=== PATIENT | female | born 1955 | race Caucasian/White ===

== ENCOUNTER 2017-09-05 23:50 | Emergency (ER) | payer OTHER ==
[~2017-09-05] VITALS: Ht 157.5 cm; Wt 74.8 kg
--- NOTE | 2017-09-06 00:21 | NUR ---
DR. CHAHAL AT BEDSIDE FOR MSE.
--- NOTE | 2017-09-06 01:55 | NUR ---
Patient discharged to home in stable conditon. Written and verbal after care instructions given. Patient verbalizes understanding of instructions. PATIENT LEFT WITH STABLE GAIT.
[2017-09-06 01:56] VITALS: BP 142/73
== END 2017-09-06 01:55 | disposition home or self-care (01) ==
LOC: ER 23:56
DX: S63.633A Sprain of interphalangeal joint of left middle finger, initial encounter (principal); Z90.49 Acquired absence of other specified parts of digestive tract; F17.200 Nicotine dependence, unspecified, uncomplicated; W18.30XA Fall on same level, unspecified, initial encounter; Y93.89 Activity, other specified; Y92.89 Other specified places as the place of occurrence of the external cause; Y99.8 Other external cause status
CPT/HCPCS: 29125; 73140; 99284; A4663

== ENCOUNTER 2022-05-29 17:25 | Emergency (ER) | payer MEDICARE, OTHER ==
[~2022-05-29] VITALS: Ht 157.5 cm; Wt 75.7 kg
[2022-05-29] MEDS ORDERED: VANCOMYCIN IV 1,000 MG in IV DEXTROSE 5% 250 ML IV ONE (18:45)
[2022-05-29] MEDS ORDERED: CEFTRIAXONE 1 G in IV DEXTROSE 5% 50 ML IV ONE (18:45)
[2022-05-29] MEDS ORDERED: CEFTRIAXONE /D5W 50ML IVPB **ER PYXIS IV ONE (18:51)
[2022-05-29] MEDS ORDERED: VANCOMYCIN IV 200 ML ONE (18:51)
[2022-05-29 19:00] LABS: HEMATOCRIT 40.6 % (31.2-41.9); MEAN CORPUSCULAR HEMOGLOBIN 27.9 uug (24.7-32.8); PLATELET COUNT (AUTO) 284 K/uL (179-408)
[2022-05-29 19:06] LABS: CREATININE 0.9 mg/dL (0.6-1.3)
--- NOTE | 2022-05-29 19:30 | NUR ---
ASSUMED CARE AND REPORT RECEIVED FROM OUTGOING RN.
--- NOTE | 2022-05-29 20:00 | NUR ---
IV ANTIBIOTICS FROM PREVIOUS SHIFT ON BEDSIDE TABLE, NO ARM BAND ON PATIENT, OBTAIN FROM REGISTRATION FOR SCANNING OF MEDS/AND IV PUMP FOR VANCO INFUSION.
[2022-05-29] MEDS ORDERED: HYDR-500 PO (21:40)
[2022-05-29] MEDS ORDERED: AMOX-430 PO (21:40)
--- NOTE | 2022-05-29 21:55 | NUR ---
SL LEFT AC DISCONTINUED WITH CATH INTACT.
--- NOTE | 2022-05-29 21:59 | NUR ---
DISCUSSED AND GIVE PATIENT DISCHARGE INSTRUCTIONS/RX AND PATIENT VERBALIZED UNDERSTANDING. LEFT ED AMBULATORY WITHOUT DISTRESS OR DISCOMFORT. RX GIVEN TO THE PATIENT FOR ITCHING/INFECTION.
[2022-05-29 22:32] VITALS: BP 120/63
== END 2022-05-29 22:34 | disposition home or self-care (01) ==
LOC: ER 17:28
DX: L03.011 Cellulitis of right finger (principal); S60.462A Insect bite (nonvenomous) of right middle finger, initial encounter; W57.XXXA Bitten or stung by nonvenomous insect and other nonvenomous arthropods, initial encounter; Y92.89 Other specified places as the place of occurrence of the external cause; F17.200 Nicotine dependence, unspecified, uncomplicated
CPT/HCPCS: 99284; 96365; 80048; 85025; 85651; 86140; 36415; 96368; J0696; J3370; A4663

== ENCOUNTER 2023-07-30 19:02 | Emergency (ER) | payer MEDICARE, OTHER ==
[~2023-07-30] VITALS: Ht 157.5 cm; Wt 71.7 kg
[~2023-07-30 19:02] MED LIST: AMOX-430 PO; HYDR-500 PO
[2023-07-30 19:14] VITALS: O2SAT 95
[2023-07-30] MEDS ORDERED: HYDR-501 PO (19:44)
== END 2023-07-30 19:52 | disposition home or self-care (01) ==
LOC: ER 19:06
DX: S50.862A Insect bite (nonvenomous) of left forearm, initial encounter (principal); S50.861A Insect bite (nonvenomous) of right forearm, initial encounter; S00.86XA Insect bite (nonvenomous) of other part of head, initial encounter; F17.210 Nicotine dependence, cigarettes, uncomplicated; Z90.49 Acquired absence of other specified parts of digestive tract; Z79.899 Other long term (current) drug therapy; W57.XXXA Bitten or stung by nonvenomous insect and other nonvenomous arthropods, initial encounter; Y93.89 Activity, other specified; Y92.89 Other specified places as the place of occurrence of the external cause; Y99.8 Other external cause status
CPT/HCPCS: A4606; A4663